=== PATIENT | female | born 1995 | race Two or more races ===

== ENCOUNTER 2022-01-07 14:10 | Observation (INO) | payer BC ==
[~2022-01-07] VITALS: Ht 152.4 cm; Wt 63.5 kg
[2022-01-07] MEDS ORDERED: PREN1TAB71 OR (15:00)
== END 2022-01-07 16:56 | disposition home or self-care (01) ==
LOC: UNDOADMOB 14:10 → LDRP 14:10
PROVIDERS: ADMIT Obstetrics & Gynecology; ATTEND Obstetrics & Gynecology
DX: O36.8120 Decreased fetal movements, second trimester, not applicable or unspecified (principal); O26.892 Other specified pregnancy related conditions, second trimester; R10.9 Unspecified abdominal pain; Z3A.20 20 weeks gestation of pregnancy
CPT/HCPCS: 59025; 76815; 81002; 94760; G0378